=== PATIENT | female | born 1990 | race Caucasian/White ===

== ENCOUNTER → 2018-08-21 15:52 | Outpatient (CLI) | payer MEDICAID, SELFPAY ==
[2018-08-21 18:10] LABS: Chlamydia Trachomatis by PCR Negative (Negative); Neisserai gonorrhoeae by PCR Negative (Negative); Probe Check PASS; Sample Adequacy Control PASS; Specimen Processing Control PASS
[2018-08-29 13:01] LABS: HPV HC, High Risk Positive (Negative); HPV Reflexed? YES, CHARGE PATIENT
--- OUTSIDE RECORDS SUMMARY | 2018-10-24 04:01 | XMS RPT_ITS ---
:1990 Author Organization OHIP Care Team Providers Name Role Phone DWIGHT JAVEDY Attending Unavailable MS. VIOLETA PIERCE Primary Care Unavailable PHYSICIAN, NONE Primary Care Unavailable BRITTANY PEÑA Attending Unavailable NU POLANCO Admitting Unavailable NU POLANCO Attending Unavailable AA NO PCP, NO PCP Primary Care Unavailable AA NO PCP, NO PCP Primary Care Unavailable OBDULIA SHEIKH Admitting Unavailable OBDULIA SHEIKH Attending Unavailable NEAL SANTIAGO Admitting Unavailable NEAL SANTIAGO Attending Unavailable CARLA DRAKE Primary Care Unavailable Neda Yeager Attending Unavailable Neda Yeager Referring Unavailable PROBLEMS PROBLEMS DATE TYPE CONDITION / CODE ATTENDING STATUS SOURCE 08/10/2018 Principle UTI SITE NOT NEAL SANTIAGO Active [facility] Diagnosis SPECIFIED / Hospital N39.0(ICD-10) Repository 08/10/2018 Secondary NICOTINE DEPEND NEAL SANTIAGO Active [facility] Diagnosis UNS UNCOMPLICATED Hospital / F17.200(ICD-10) Repository 08/10/2018 Active UNSPECIFIED NEAL SANTIAGO Active [facility] ABDOMINAL PAIN / Hospital R10.9(ICD-10) Repository 08/10/2018 Secondary ALLERGY STATUS OTH NEAL SANTIAGO Active [facility] Diagnosis RX MEDANDBIO SUBST Hospital / Z88.8(ICD-10) Repository 04/26/2018 Active RIGHT LOWER OBDULIA SHEIKH Active [facility] QUADRANT PAIN / J Hospital R10.31(ICD-10) Repository 04/26/2018 Principle RIGHT LOWER OBDULIA SHEIKH Active [facility] Diagnosis QUADRANT PAIN / J Hospital R10.31(ICD-10) Repository 04/26/2018 Secondary UTI SITE NOT OBDULIA SHEIKH [facility] Diagnosis SPECIFIED / [facility] N39.0(ICD-10) Repository 04/26/2018 Secondary HEMATURIA OBDULIA SHEIKH [facility] Diagnosis UNSPECIFIED / Hospital R31.9(ICD-10) Repository 04/27/2018 Active LOW BACK PAIN / [facility] M54.5(ICD-10) [facility] Repository 04/27/2018 Secondary UNSPECIFIED HELLER, [facility] Diagnosis ABDOMINAL PAIN / [facility] R10.9(ICD-10) Repository PROCEDURES PROCEDURES No Procedure Records FoundRESULTS RESULTS CT/NG [facility] BY PCR Collected: 08/21/2018 Status: F Source: [place] 2:[address] [facility] REPOSITORY TYPE CODE TESTS RESULT OUT OF RANGE REFERENCE UNITS LAB L8200.2100 Negative Normal Chlam Negative Trac PCR LAB L8200.2200 Negative Normal NG by Negative PCR Performed By: #### L8200.2000 #### [facility] [address] [place], [address] Observed: 08/21/2018 Status: F Source: [place] CULTURE, URINE 2:[address] [facility] REPOSITORY Urine Culture Below infection level. ORGANISM 1: Mixed Gram Positive Organisms Thornton Count <1000 MIX CULTURE Mixed contaminants. Submit a new specimen if indicated. Performed By: #### M100.0650 #### [facility] [address] [place], [address] Observed: 07/20/2018 Status: F Source: [place] CULTURE URINE QNT 1:21 PM [facility] REPOSITORY Order Comment: [facility] Escherichia coli >100,000 CFU/mL Susceptibility Data: Isolate 1 - 1 Drug Interpretation Result Status ESBL Neg Neg F Ampicillin S <=2 F Ampicillin/Sulbactam S <=2 F Piperacillin/Tazobactam S <=4 F Cefazolin S <=4 F Ceftazidime S <=1 F Ceftriaxone S <=1 F Cefepime S <=1 F Aztreonam S <=1 F Ertapenem S <=0.5 F Meropenem S <=0.25 F Gentamicin S <=1 F Tobramycin S <=1 F Levofloxacin S <=0.12 F Tigecycline S <=0.5 F Nitrofurantoin (Urine only) S <=16 F Trimethoprim/Sulfamethoxazole S <=20 F Performed By: #### CXURINE #### [facility] [address] [place] [address] CT ABDOMEN / PELVIS Observed: 04/21/2018 Status: F Source: [place] WITHOUT CONTRAST 6:06 PM [facility] REPOSITORY CT ABDOMEN AND PELVIS WITHOUT IV CONTRAST CLINICAL INDICATION: Abdominal and right flank pain, history of UTI TECHNIQUE: Transaxial sequence through the abdomen and pelvis without oral or IV contrast. Images were reconstructed at 3 mm slice width at 3 mm interval. Dose reduction was employed with automated exposure control. COMPARISON: None. FINDINGS: Exam quality: This examination is limited for the evaluation of solid organs and vascular structures due to the lack of intravenous contrast. Somewhat limited due to lack of oral and intravenous contrast and lack of fat planes Chest base: Normal. Liver: Normal size and contour. No identifiable lesion. Biliary tree: Normal caliber. Nondistended gallbladder. Spleen: Normal. Adrenals: Normal. Pancreas: Normal. Kidneys: No contour abnormality or focal renal lesion. Renal collecting systems: No calculi, hydronephrosis or ureteral dilatation. Free fluid: None. Retroperitoneal/mesenteric lymphadenopathy: None. Aorta: Normal caliber. Bowel: Normal caliber bowel loops. Nondistended appendix. Pelvic organs/viscera: No mass identified. Bladder: No calculi or filling defects. Pelvic lymphadenopathy: None. Osseous structures: Normal. IMPRESSION: No evidence of radiopaque urinary calculi or hydronephrosis. Report Dictated on Authenticated by: Wing Taveras On: 04/21/2018 18:03 Read by: WING TAVERAS MD Date: 04/21/2018 18:03 Observed: 04/17/2018 Status: F Source: [place] CULTURE URINE QNT 12:14 PM [facility] REPOSITORY Order Comment: BRIANNA performed at additional charge when indicated Escherichia coli >100,000 CFU/mL Susceptibility Data: Isolate 1 - 1 Drug Interpretation Result Status ESBL Neg Neg F Ampicillin S 4 F Ampicillin/Sulbactam S <=2 F Piperacillin/Tazobactam S <=4 F Cefazolin S <=4 F Ceftazidime S <=1 F Ceftriaxone S <=1 F Cefepime S <=1 F Aztreonam S <=1 F Ertapenem S <=0.5 F Meropenem S <=0.25 F Gentamicin S <=1 F Tobramycin S <=1 F Levofloxacin S <=0.12 F Tigecycline S <=0.5 F Nitrofurantoin (Urine only) S <=16 F Trimethoprim/Sulfamethoxazole S <=20 F Performed By: #### CXURINE #### [facility] [place] [id number] ALLERGIES ALLERGIES DATE TYPE / CODE NAME / CODE REACTION SEVERITY SOURCE Drug penicillin/1 Unknown [facility] Allergy/4160 6121(RXNORM) [facility] [address]420(SNOMED Repository CT) ENCOUNTERS ENCOUNTERS ADMIT/DISCHARGE ACCOUNT NUMBER ADMITTING ENCOUNTER LOCATION SOURCE CLASS 08/21/2018 [id number] Ambulatory [facility] ding:LABSPEC Repository 07/20/2018/ [id number] NEAL SANTIAGO Ambulatory Building:REF [address] Repository 04/21/2018/ [id number] AGUILAR [place] [address] OBDULIA Haq om: [facility] [id number]: Hospital [id number] Repository 04/17/2018/ [id number] COLLIN Ambulatory Building:[address] Repository 01/09/2018/ [id number] Ambulatory ABuilding: Brian [address] [facility] Repository 08/29/2017/ [id number] Ambulatory ABuilding:[facility] [address] [facility] Repository PAYERS PAYERS ENCOUNTER GUARANTOR PAYER SUBSCRIBER SOURCE 08/21/2018 CUCA S Primary [facility]CA Medeiros [id number] Insurance:[facility]: [facility] [id number] PLANPolicy Number: Repository [place], [place] [id number] [address]Jwd: (330) Date:3541-72-62IS [facility] [phone] (HP) [address], [place] [address]QO: 08/21/2018 Secondary NOT GIVENUNK Waldemar Insurance:SELF PAY [facility] Number: Effective Repository Date:2018-08-21 07/20/2018 CUCA Primary [facility] NORCIADOB: Insurance:[facility] MEDICAIDPolicy [id number] Repository EARL Number: 1 [facility] [id number] [facility] [place] Date:1019-50-47ZY [place], [place] [address]Igm: [phone], [place] [address]Dfz: [phone] (HP) [phone]: [phone] (HP) 04/21/2018 CUCA Primary Insurance:[facility] NORCIADOB: Commerical NORCIADOB: Hospital PlansPolicy Number: [id number] Repository EAR[place] [id number] 1 [place] [address] Date:0265-35-12QJ [facility] [place] [address]CUUOBXFADVENTHE[place] [address]Ugh: [phone]: [phone]: [phone] (HP) [phone] (HP) 04/21/2018 Secondary [facility] Insurance:[facility] Hospital MEDICAIDPolicy [id number] Repository Number: Nini ELLIOTT [id number] [place] Date:5912-29-25PS[address] [address]Faa: [phone]: [phone] (HP) 04/17/2018 [facility] Insurance:[facility] NORADOB: Commerical [facility] [id number] PlansPolicy Number: [id number] Repository EARL [id number] Nini ELLIOTT [place] Date:3461-02-44[place]UM[place], [place] [address]LWAIVPAHON[place]UL[place], [place] [address]Jui: [phone]: [phone] (HP) 04/17/2018 Secondary [facility] MEDICAIDPolicy [id number] Repository Number: Nini ELLIOTT [id number] [place] Date:8363-38-26[address] [address]Ktw: [phone]: [phone] () 01/09/2018 [facility]: [facility] [id number] HEALTH PLANPolicy [id number] [address]ository [address] Number: [address] [place], [place] [id number] [place], [place] [address]Hhr: [phone]) Date:2018-01-09 [address]Eeb: [id number] [phone] (HP)Tel: [phone]) Name:X[address] (HP) (WP) [address], [place] [phone] (UA) [phone]: 08/29/2017 [facility]: [facility] [id number] [facility] [id number] Repository [facility] Number: [address] [place], [place] [id number] [place], [place] [address]Mkp: [phone] Date:2017-08-29 [address]Dpk: [id number] [phone] ()Tel: [phone] Name:[address] (HP) (wp) [address], [place] [phone] () [phone]:
== END ==
PROVIDERS: Referring Provider Obstetrics & Gynecology; Visit Provider Obstetrics & Gynecology
DX: Z12.4 Encounter for screening for malignant neoplasm of cervix (principal); Z11.3 Encounter for screening for infections with a predominantly sexual mode of transmission; N39.0 Urinary tract infection, site not specified
CPT/HCPCS: 87086; 87088; 87491; 87591; 87624; 88175; G0145

== ENCOUNTER → 2019-08-22 | Outpatient (CLI) | payer MEDICAID, SELFPAY | END | disposition home or self-care (01) | PROVIDERS: Referring Provider Advanced Practice Midwife; Visit Provider Advanced Practice Midwife | DX: Z12.4 Encounter for screening for malignant neoplasm of cervix (principal) ==

== ENCOUNTER → 2020-09-10 | Outpatient (CLI) | payer OTHER, SELFPAY ==
[2020-09-13 03:07] LABS: Chlamydia By Nucleic Acid AMP Negative (Negative)
[2020-09-13 11:49] LABS: Gonococcus By Nucleic Acid AMP Negative (Negative)
[2020-09-17 01:09] LABS: HPV APTIMA, High Risk Negative (Negative)
== END | disposition home or self-care (01) ==
LOC: LABSPEC 17:18
PROVIDERS: Visit Provider Obstetrics & Gynecology
DX: Z12.4 Encounter for screening for malignant neoplasm of cervix (principal); Z11.3 Encounter for screening for infections with a predominantly sexual mode of transmission
CPT/HCPCS: 87491; 87591; 87624; 88175; G0145

== ENCOUNTER → 2020-09-11 10:41 | Outpatient (CLI) | payer OTHER, SELFPAY ==
--- NOTE | 2020-09-11 10:46 | US_ITS ---
STUDY: ULTRASOUND BREAST - RIGHT REASON FOR EXAM: Female, 30 years old. TECHNIQUE: Axial and longitudinal images of the RIGHT breast were performed with a high resolution ultrasound transducer. # OF IMAGES: 28 COMPARISON: None. FINDINGS: RIGHT Breast: There is a lesion in the upper part of the right breast. The lesion measures 1.7 x 1.7 x 2.3 cm in size. Clock notation: 12 o''clock position. Distance from nipple: 1 cm. Posterior Enhancement: Yes. Posterior Shadowing: Slight. Margins: Indistinct and jagged. Echogenicity: Hypoechoic. Compression effect on Shape: No change. US/Breast Limited Unilateral IMPRESSION: Suspicious mass in the right breast. ASSESSMENT CATEGORY: BIRADS Category 4: Suspicious - Biopsy Should Be Considered. A letter regarding these results will be sent to the patient by the facility within 30 days. Electronically Signed: Sherri Baker MD at 0:50 EST Tel , Service support ,
--- NOTE | 2020-09-11 10:46 | BI_ITS ---
MAMMOGRAPHY - BILATERAL DIAGNOSTIC REASON FOR EXAM: Female, 30 years old. PERTINENT HISTORY: TECHNIQUE: Digital bilateral breast maggy (3D mammographic acquisition) in the CC and MLO projections. 2-D mediolateral oblique (MLO) and craniocaudad (CC) views of both breasts were obtained. CAD: Full Field Digital Mammography with Computer Added Detection was performed. COMPARISON: None. FINDINGS: Breast Composition: The breasts are heterogeneously dense, which may obscure small masses. There is a mass in the upper part of the right breast measuring approximately 1.7 cm. For which further evaluation by ultrasound is recommended. There are no dominant masses or suspicious calcifications in the left breast. No other significant abnormalities are identified. BI/DIAG MAMM W/CAD, BILAT IMPRESSION: Further ultrasonographic evaluation recommended, as described above. (I) ASSESSMENT CATEGORY: BIRADS Category 0: Incomplete. Need additional imaging evaluation. A letter regarding these results will be sent to the patient by the facility within 30 days. Approximately 10% of breast cancers are not detected by mammography. A normal mammogram should not delay biopsy of a clinically suspicious abnormality. Electronically Signed: Sherri Baker MD at 0:48 EST Tel , Service support ,
== END ==
PROVIDERS: Visit Provider Obstetrics & Gynecology
DX: N63.10 Unspecified lump in the right breast, unspecified quadrant (principal)
CPT/HCPCS: 76642; 77062; 77066; G0279

== ENCOUNTER → 2020-09-15 | Outpatient (CLI) | payer OTHER, SELFPAY ==
--- NOTE | 2020-09-15 | IMM_PTH ---
PATIENT: CUCA BRUNO LOC: [facility] U#:[id number] AGE/SX: 30/F ROOM: RE09/15/[address]: Dr. Yumiko Cary MD : 1990 BED: DIS: 09/15/2020 SPEC #: [id number] RECD: 09/17/20 13:39 STATUS: NENITA REQ #: [id number] DARIO: 09/15/20 00:[address]: Yumiko Cary DEPT: IMMUNOHISTOCHEMISTRY RECD BY: Fior Appiah ENTERED: 09/17/20 13:40 SP TYPE: IMMUNO OTHR DR: No Primary Care Phys Tissues: Right breast, NOS Procedures: CALPONIN-1 (add) CD45 (add) CK19 (add) CK5-6 (add) CK7 (add) CK8 (add) E-CAD (add) HER2 DERRELL (add) KI-67 (add) MAMM (add) P53 (add) VA (add) Vimentin (add) 34BE12 (add) Pankeratin (add) GATA3 (add) P40 (add) ER (initial) PHYSICIAN & INSTITUTION [place] [id number] SPECIMEN INFORMATION: Tissue Source: Right breast mass, 12 o'clock, 2 cm from nipple Clinical Info: Abnormal right mammogram Specimen Number: [id number] CPT code: 56034, 78938 x14, 73359 x3 METHODOLOGY: Deparaffinized sections of prefer/formalin-fixed tissue or PAP/DQ stained slides are incubated with monoclonal/polyclonal antibodies/oligonucleotide probes. Localization is made via biotin free immunoperoxidase method. Appropriate controls are performed and reacted as expected. Results on target cell population are indicated in the following table: RESULTS: ANTIBODY / CLONE RESULT E-Cad (ECH-6) positive CK8 (78qwreK13) negative Calponin-1 (PY494L) negative CK5-6 (D5 & 1684) negative P40 (BC28) negative P53 (DO-7) negative Ki-67 (30-9) positive, high GATA3 (L50-823) positive Mammaglobin (31A5) negative CK19 (A53-B/A2.26) positive, focal 34BE12 (34BE12) positive, focal CK7 (OV-TL12/30) positive, focal AE1-3 (AE1/AE3/PCK26) positive, focal Vimentin (V9) positive CD45 (RP2/18) negative MORPHOMETRIC ANALYSIS ER (clone 6F11) 0% VA (clone 16/1E2) 0% Her-2Neu (clone CB11) 0 The prognostic test for HER2 is performed on formalin-fixed paraffin embedded tissue. A 3+ (positive) staining pattern is defined as intense, homogeneous, complete, circumferential membranous staining in >10% of contiguous tumor cells. A similar weak (2+) staining pattern is interpreted as equivocal. ANABELLA follow-up testing is recommended for all equivocal cases. Positivity/negativity for ER/VA is reported if > or < 1% of the tumor cells are immuno- reactive, respectively. The ASCO/CAP criteria is used for scoring. Reference: Journal of Clinical Oncology, 2013; 31:3887-2950 & 2010; 16:7965-0826. Duration of fixation: 28.5 Hrs; Sample Adequate: Yes. These assays have not been validated on decalcified tissues. Results should be interpreted with caution given the likelihood of false negativity on decalcified specimens. These tests were developed and their performance characteristics determined by [facility]. They may not have been cleared or approved by the U.S. Food and Drug Administration. The FDA has determined that such clearance or approval is not necessary. The above immunohistochemical/dualISH markers are ordered and reviewed by the Pathologist. INTERPRETATION: Right breast, 12 o'clock, 2 cm from nipple, ultrasound-guided biopsy: Invasive ductal carcinoma, nuclear grade 3, with metaplastic features. Negative for estrogen receptors (unfavorable prognostic indicator). Negative for progesterone receptors (unfavorable prognostic indicator). Negative for overexpression of DIA7wif. See comment. SJ:loren 09/19/2020 Comment: The tumor shows extensive spindle cell morphology. Case has been reviewed in consultation with Dr. Woods who concurs with the above diagnosis. IDC:AM
[2020-09-15 14:46] VITALS: BMI 22.4
--- NOTE | 2020-09-15 15:10 | BRBX_PTH ---
PATIENT: CUCA BRUNO LOC: [facility] U#:[id number] AGE/SX: 30/F ROOM: RE09/15/[address]: Dr. Yumiko Cary MD : 1990 BED: DIS: 09/15/2020 SPEC #: [id number] RECD: 09/15/20 16:09 STATUS: NENITA REQ #: [id number] DARIO: 09/15/20 15:[address]: Yumiko Cary DEPT: SURGICAL PATHOLOGY RECD BY: Teresa Sun ENTERED: 09/16/20 10:02 SP TYPE: BREAST BX OTHR DR: No Primary Care Phys Tissues: Breast, NOS Procedures: Surgery Specimen Level IV HEADER OPERATION: Ultrasound-guided right breast biopsy PRE-OP DIAGNOSIS: Abnormal mammogram, right TISSUE SUBMITTED: Right breast mass 12 o'clock, 2 cm from nipple MICROSCOPIC DIAGNOSIS Right breast mass, 12 o'clock, 2 cm from nipple, ultrasound-guided core biopsy: Invasive ductal carcinoma, nuclear grade 3, with metaplastic features (0.8 cm in greatest length). See comment. NELL:loren 09/17/2020 COMMENT Immunohistochemistry ([id number]) supports the above diagnosis. Tumor shows extensive spindle cell morphology. ER/DE/Can5typ studies are being performed on sections of tumor and the results from this study will be reported separately ([id number]). Case has been reviewed in consultation with Dr. Woods who concurs with the above diagnosis. IDC:AM MICROSCOPIC DESCRIPTION Slides are reviewed. GROSS DESCRIPTION Received in fixative is one container labeled with the patient's name and designated right breast. The specimen consists of two cores of light curran soft tissue. Each core has an average length of 1.5 cm and an average diameter of 0.1 cm. The specimen is totally submitted in one cassette. / AM:loren 09/16/20 TC:0 CPT: 65743 ADDENDUM ADDENDUM ADDENDUM ADDENDUM ADDENDUM ADDENDUM ADDENDUM ADDENDUM ADDENDUM ADDENDUM 10/01/2020 10:01 ADDENDUM 10/01/2020 10:01 ADDENDUM 10/01/2020 10:01 ADDENDUM 10/01/2020 10:01 ADDENDUM 10/01/2020 10:01 This addendum is added to incorporate an outside pathology consultation report. The case was examined at [facility] (#[id number]) and the following diagnosis was rendered. Right breast mass, 12 o'clock, 2 cm from nipple, ultrasound-guided core biopsy: Invasive ductal carcinoma, provisional Myla grade 3. Please see complete above mentioned consultation report in EMR
== END | disposition home or self-care (01) ==
LOC: LABSPEC 16:19
PROVIDERS: Referring Provider Surgery; Visit Provider Surgery
DX: R92.8 Other abnormal and inconclusive findings on diagnostic imaging of breast (principal)
CPT/HCPCS: 88305; 88341; 88342